=== PATIENT | male | born 1935 | race Caucasian/White ===

== ENCOUNTER → 2020-11-29 | Outpatient (CLI) | payer OTHER ==
[~2020-11-29] MED LIST: CRESTOR40 MG PO; ZOFRAN ODT4 MG PO
[2020-11-29 14:15] LABS: ABSOLUTE NEUTROPHILS 4.6 thou/uL (1.4-8.2); BASOPHILS 0.4 % (0.0-2.0); EOSINOPHILS 4.7 % (0.0-3.0); HEMATOCRIT 39.7 % (42.0-52.0); HEMOGLOBIN 13.5 gm/dL (14.0-18.0); MCH 30.4 pg (26.0-34.0); MCHC 34.1 g/dL (28.0-37.0); MCV 89.3 fL (80.0-100.0); MONOCYTES 12.1 % (1.0-8.0); PLATELET COUNT 200 thou/uL (150-400); POLYS 48.8 % (36.0-66.0); RBC 4.44 mil/uL (4.50-6.00); RDW 14.3 % (10.5-14.5); WBC 9.5 thou/uL (4.0-11.0)
[2020-11-29 14:30] LABS: ALBUMIN 4.1 g/dL (3.4-5.0); CALCIUM 9.8 mg/dL (8.5-10.1); CREATININE 1.7 mg/dL (0.7-1.3); POTASSIUM 4.5 mmol/L (3.5-5.1); TOTAL BILIRUBIN 0.5 mg/dL (0.2-1.0)
--- NOTE | 2020-11-30 08:20 | EKG ---
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
== END ==
LOC: LAB 13:14 → CV 13:14
PROVIDERS: ATTEND Otolaryngology Plastic Surgery within the Head & Neck
DX: L03.221 Cellulitis of neck (principal); R22.1 Localized swelling, mass and lump, neck; H90.3 Sensorineural hearing loss, bilateral; I49.9 Cardiac arrhythmia, unspecified; Z97.4 Presence of external hearing-aid

== ENCOUNTER 2021-07-05 11:27 | Emergency (ER) | payer OTHER ==
[~2021-07-05] VITALS: Ht 160 cm; Wt 65.3 kg
[2021-07-05] MEDS ORDERED: ALFUZOSIN HCL10 MG PO (11:52)
[2021-07-05 13:13] LABS: HEMATOCRIT 37.2 % (42.0-52.0); HEMOGLOBIN 12.4 gm/dL (14.0-18.0); MCH 29.3 pg (26.0-34.0); MCHC 33.2 g/dL (28.0-37.0); MCV 88.1 fL (80.0-100.0); RBC 4.22 mil/uL (4.50-6.00); RDW 14.7 % (10.5-14.5); WBC 8.7 thou/uL (4.0-11.0)
[2021-07-05 13:25] LABS: CREATININE 1.7 mg/dL (0.7-1.3)
[2021-07-05 13:26] LABS: POTASSIUM 5.7 mmol/L (3.5-5.1)
[2021-07-05 13:31] LABS: TOTAL BILIRUBIN 0.5 mg/dL (0.2-1.0); TOTAL PROTEIN 7.4 g/dL (6.4-8.2)
[2021-07-05 14:05] VITALS: BP 117/51
--- NOTE | 2021-07-08 07:14 | EKG ---
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
== END 2021-07-05 14:06 | disposition home or self-care (01) ==
LOC: ER 11:27
PROVIDERS: Emergency Medicine
DX: R53.83 Other fatigue (principal); E78.00 Pure hypercholesterolemia, unspecified; Z79.899 Other long term (current) drug therapy; Z98.890 Other specified postprocedural states; Z88.0 Allergy status to penicillin; Z88.2 Allergy status to sulfonamides; Z91.041 Radiographic dye allergy status